=== PATIENT | male | born 2000 | race Caucasian/White ===

== ENCOUNTER 2019-12-15 12:37 | Emergency (ER) | payer BC, SELFPAY ==
[2019-12-15 12:51] VITALS: BP 153/63; PULSE 86; RESP 19; TEMP 27.7; O2SAT 99
--- NOTE | 2019-12-15 13:16 | ED.GENADULT ---
HPI - General Adult General Chief complaint: Upper Respiratory Infection Stated complaint: sore throat Time Seen by Provider: 12/15/19 12:45 Source: patient and family Mode of arrival: ambulatory Limitations: no limitations History of Present Illness HPI narrative: Patient is a 19-year-old male who presents to emergency department for evaluation of upper respiratory symptoms for the last few days noting sore throat congestion rhinorrhea nonproductive cough subjective fever. Patient denies any chest pain dyspnea weakness patient notes that he was just an spring break in [place] and then in [place] but is unsure as to any exact potential exposures to Covid. On arrival to emergency department patient in the room in no distress. Related Data Home Medications Medication Instructions Recorded Confirmed sertraline [Zoloft] 100 mg PO DAILY 12/15/19 Allergies Allergy/AdvReac Type Severity Reaction Status Date / Time No Known Allergies Allergy Verified 12/15/19 12:58 Review of Systems Review of Systems: All systems reviewed & are unremarkable except as noted in HPI and below PMFSH Social History Social History (Updated 12/15/19 @ 13:21 by Marshall Stanford PA-C) Smoking status: Current every day smoker Exam Narrative: Exam Narrative: GENERAL: Well-appearing, well-nourished, and in no acute distress. HEAD: Normocephalic, atraumatic. EYES: PERRLA and EOMI. ENT: Nares clear, no rhinorrhea or epistaxis. Mucous membranes moist. Oropharynx with tonsillar hypertrophy exudate and without other lesions. Bilateral TMs pearly morse nonbulging. Uvula midline no trismus or drooling NECK: Supple. Anterior adenopathy CHEST: Clear to auscultation. No respiratory distress. No wheezes rales or rhonchi HEART: Regular rate and rhythm. No murmur heard. EXTREMITIES: Normal range of motion. No edema. SKIN: Warm, dry, no rash. NEURO: No focal deficits. Alert and oriented x3. Cranial nerves II through XII grossly intact PSYCH: Normal mood and affect. Course Course Emergency Course: Patient in the room at this time in no distress afebrile nontoxic-appearing normal vital signs felt appropriate for outpatient reevaluation patient was advised that the influenza and strep are negative and that he could potentially be sick with covid 19. Patient was advised to follow with his primary care in the [facility] for further consideration and instructions on quarantining and testing if warranted. Patient provided with reasons to return. Patient afebrile nontoxic-appearing without emesis is noted Vital Signs Vital signs: Vital Signs Temperature 81.8 F L 12/15/19 12:51 Pulse Rate 86 12/15/19 12:51 Respiratory Rate 19 12/15/19 12:51 Blood Pressure 153/63 H 12/15/19 12:51 Pulse Oximetry 99 12/15/19 12:51 Temperature 81.8 F L 12/15/19 12:51 Pulse Rate 86 12/15/19 12:51 Respiratory Rate 19 12/15/19 12:51 Blood Pressure 153/63 H 12/15/19 12:51 Pulse Oximetry 99 12/15/19 12:51 Medical Decision Making MDM Narrative Medical decision making narrative: Patient in the room at this time aware of case findings treatment plan and diagnosis agreeing to follow-up as directed provided with reasons to return Vital Signs Vital Signs: Vital Signs Temperature 81.8 F L 12/15/19 12:51 Pulse Rate 86 12/15/19 12:51 Respiratory Rate 19 12/15/19 12:51 Blood Pressure 153/63 H 12/15/19 12:51 Pulse Oximetry 99 12/15/19 12:51 Temperature 81.8 F L 12/15/19 12:51 Pulse Rate 86 12/15/19 12:51 Respiratory Rate 19 12/15/19 12:51 Blood Pressure 153/63 H 12/15/19 12:51 Pulse Oximetry 99 12/15/19 12:51 Lab Data Labs: Influenza A Screen Negative Reference Range: Negative Influenza B Screen Negative Reference Range: Negative Discharge Plan Discharge Clinical Impression: Upper respiratory infection Patient Disposition: Home, Self-Car
[2019-12-15 13:18] VITALS: TEMP 37
== END 2019-12-15 13:57 | disposition home or self-care (01) ==
PROVIDERS: Emergency Provider Emergency Medicine; PCP Family Medicine Sports Medicine
DX: J06.9 Acute upper respiratory infection, unspecified (principal); Z20.828 Contact with and (suspected) exposure to other viral communicable diseases; F17.200 Nicotine dependence, unspecified, uncomplicated
CPT/HCPCS: 87081; 87804; 87880; 99283

== ENCOUNTER 2019-12-17 10:16 | Emergency (ER) | payer BC, SELFPAY ==
--- NOTE | ~2019-12-17 | XR_ITS ---
XR chest 1V portable DATE: 12/17/2019 11:18 INDICATION: Shortness of breath. Recent travel. TECHNIQUE: Portable upright AP views on 12/17/2019 at 1114 1115 hours COMPARISON: None FINDINGS: Normal heart size. No hilar or mediastinal enlargement. No pulmonary infiltrate or consolid ation, pleural effusion or pulmonary vascular congestion or pneumothorax is detected. IMPRESSION: No active cardiopulmonary disease Reviewed, dictated and finalized at location A.
[2019-12-17 10:20] VITALS: BP 133/67; PULSE 123; RESP 16; TEMP 37.2; O2SAT 97
[2019-12-17 11:00] VITALS: BP 116/80; PULSE 97; RESP 20; O2SAT 100
--- NOTE | 2019-12-17 11:01 | ED.URI ---
HPI - URI/Sore Throat General Chief Complaint: Upper Respiratory Infection Stated Complaint: fever, cold sx's Time Seen by Provider: 12/17/19 10:23 Source: patient Mode of arrival: ambulatory Limitations: no limitations History of Present Illness HPI Narrative: This is a 19 year old male that presents to the ER for sore throat x 4 days. Also reports subjective fever and some nausea and vomiting. Reports he feels like he is short of breath, but is not sure if it is just anxiety. Reports he recently traveled from [place], [place]. Reports his he was there for 10 days. Reports his symptoms started the day before he returned. Denies cough, chest pain, abdominal pain, or dysuria. Related Data Home Medications Medication Instructions Recorded Confirmed sertraline [Zoloft] 100 mg PO DAILY 12/15/19 Allergies Allergy/AdvReac Type Severity Reaction Status Date / Time No Known Allergies Allergy Verified 12/17/19 10:38 Review of Systems Review of Systems: Narrative: CONSTITUTIONAL: Reports fever, chills ENT: Reports sore throat. Denies rhinorrhea, congestion, or otalgia. CARDIOVASCULAR: Denies chest pain RESPIRATORY: Reports dyspnea. Denies cough GASTROINTESTINAL: Reports nausea and vomiting. Denies abdominal pain,or diarrhea. GENITOURINARY: Denies dysuria or hematuria. SKIN: Denies rash All systems reviewed & are unremarkable except as noted in HPI and below PMFSH Social History Social History (Updated 12/17/19 @ 11:13 by Dalila Hernandez PA-C) Smoking status: Current every day smoker Substance use type: marijuana Exam Narrative: Exam Narrative: GENERAL: Well-appearing, well-nourished, and in no acute distress. HEAD: Normocephalic, atraumatic. EYES: EOMI. ENT: Nares with rhinorrhea, no epistaxis. Mucous membranes moist. Oropharynx with tonsillar hypertrophy and exudate, no other lesions. Uvula midline, no trismus. Bilateral TMs pearly morse non-bulging NECK: Supple. Tender cervical adenopathy CHEST: Clear to auscultation. No respiratory distress. No wheezes rales or rhonchi HEART: Regular rate and rhythm. No murmur heard. Normal peripheral pulses. ABDOMEN: Soft, nontender, nondistended, normal active bowel sounds. EXTREMITIES: Normal range of motion. No edema. SKIN: Warm, dry, no rash. NEURO: No focal deficits. Alert and oriented x3. PSYCH: Normal mood and affect Course Vital Signs Vital signs: Vital Signs Temperature 98.9 F 12/17/19 10:20 Pulse Rate 123 H 12/17/19 10:20 Respiratory Rate 16 12/17/19 10:20 Blood Pressure 133/67 12/17/19 10:20 Pulse Oximetry 97 12/17/19 10:20 Temperature 100.3 F H 12/17/19 11:30 Pulse Rate 100 12/17/19 12:00 Respiratory Rate 22 H 12/17/19 12:00 Blood Pressure 122/62 12/17/19 12:00 Pulse Oximetry 97 12/17/19 12:00 MDM - URI/Sore Throat MDM Narrative Medical decision making narrative: Patient presents to the emergency department for sore throat and fever x4 days. Patient afebrile while in the ED. Mildly tachycardic upon arrival, this improved after IV fluids. CBC with leukocytosis to 15. Lymphocytosis noted. Metabolic panel shows transaminitis. CRP is mildly elevated. Strep screen is negative. [place] screen is positive. Chest x-ray is without acute changes. Patient and family were updated on case findings. They were instructed on care of mononucleosis. He is to follow-up with primary care doctor. He was given warnings to return to the ER Lab Data Attestation: I reviewed the patient's lab results. Result diagrams: 12/17/19 11:07 12/17/19 11:07 Labs: Lab Results 12/17/19 12/17/19 12/17/19 Range/Units 11:07 11:07 11:07 WBC 15.3 H (4.5-10.0) K/mm3 RBC 4.90 (4.6-6.20) M/mm3 Hgb 14.8 (14.0-18.0) g/dL Hct 44.2 (42.0-52.0) % MCV 90.2 (80-100) fl MCH 30.2 (26-34) pg MCHC 33.5 (32-36) g/dl RDW 12.6 (11.5-14.5) % Plt Count 156 (150-375) k/mm3 MPV 8.9
[2019-12-17 11:17] LABS: Basophils Absolute Auto 0.2 K/mm3 (0.0-0.1); Basophils Percent Auto 1.1 % (0.2-1.2); Hematocrit 44.2 % (42.0-52.0); Hemoglobin 14.8 g/dL (14.0-18.0); Immature Granulocyte Absolute 0.05 K/mm3 (0.00-0.031); Immature Granulocyte Percent A 0.3 % (0-0.5); Lymphocytes Absolute Auto 7.89 K/mm3 (0.9-3.2); Lymphocytes Percent Auto 51.6 % (18.3-44.2); Mean Corpuscular HGB Conc 33.5 g/dl (32-36); Mean Corpuscular Hemoglobin 30.2 pg (26-34); Mean Corpuscular Volume 90.2 fl (80-100); Mean Platelet Volume 8.9 fl (7.4-10.4); Monocytes Absolute Auto 1.5 K/mm3 (0.1-0.6); Monocytes Percent Auto 9.6 % (2.6-8.5); Neutrophils Absolute Auto 5.7 K/mm3 (1.3-6.7); Neutrophils Percent Auto 37.4 % (45.5-73.1); Platelet Count Result 156 k/mm3 (150-375); Red Cell Distribution Width 12.6 % (11.5-14.5); White Blood Count 15.3 K/mm3 (4.5-10.0)
[2019-12-17 11:30] VITALS: BP 120/63; PULSE 110; RESP 22; TEMP 37.9; O2SAT 100
[2019-12-17] MEDS: ONDANSETRON INJ 4 MG/2 ML VIAL IV PUSH (11:35)
[2019-12-17 11:36] LABS: Alanine Aminotransferase 149 U/L (4-50); Alkaline Phosphatase 237 U/L (38-126); Aspartate Amino Transferase 152 U/L (17-59); Bilirubin,Total 1.2 mg/dL (0.2-1.3); Blood Urea Nitrogen 6 mg/dL (9-20); CRP 2.9 mg/dL (<1.0); Calcium 8.9 mg/dL (8.4-10.2); Carbon Dioxide 27 mmol/L (22-30); Chloride 98 mmol/L (98-107); Estimated CRCL calculation 148 ml/min; Estimated Glomerular Filt Rate > 60; Glucose 112 mg/dL (75-110); Lactate Dehydrogenase 1204 U/L (313-618); Potassium 4.3 mmol/L (3.4-5.0); Sodium 134 mmol/L (137-145)
[2019-12-17] MEDS: SODIUM CHLORIDE 0.9% IV 1,000 ML 999 ML IV CONT (11:40)
[2019-12-17 12:00] VITALS: BP 122/62; PULSE 100; RESP 22; O2SAT 97
[2019-12-17 12:08] LABS: Monoscreen Positive (Negative); Negative Monotest Control Negative (Negative); Positive Monotest Control Positive (Positive)
[2019-12-17 13:30] VITALS: BP 116/64; PULSE 78; RESP 18; O2SAT 97
== END 2019-12-17 13:33 | disposition home or self-care (01) ==
PROVIDERS: Physician Assistant; Emergency Provider Emergency Medicine; PCP Family Medicine Sports Medicine
DX: B27.90 Infectious mononucleosis, unspecified without complication (principal); F17.200 Nicotine dependence, unspecified, uncomplicated
CPT/HCPCS: 36415; 71045; 80053; 83615; 85025; 86140; 86308; 87081; 87880; 96361; 96365; 96375; 99284; J0131; J2405; J7030

== ENCOUNTER 2021-04-03 16:04 | Emergency (ER) | payer BC, SELFPAY ==
--- NOTE | ~2021-04-03 | XR_ITS ---
EXAMINATION: XR chest 2V DATE: 04/03/2021 16:36 INDICATION: Generalized chest pain TECHNIQUE: PA and lateral views of the chest are obtained. COMPARISON: 12/17/2019 FINDINGS: The lungs are free of acute opacities. There is no pleural effusion or pneumothorax. The ca rdiomediastinal silhouette is normal. The visualized bones and soft tissues are unremarkable. IMPRESSION: 1. No acute cardiopulmonary abnormality. Reviewed, dictated and finalized at location B.
[2021-04-03 16:07] VITALS: BP 133/82; PULSE 89; RESP 18; TEMP 36.6; O2SAT 99
--- NOTE | 2021-04-03 16:12 | ECG_ITS ---
Measurements Intervals [place] Rate: 81 P: 72 MS: 142 QRS: 56 QRSD: 98 T: 63 QT: 350 QTc: 407 Interpretive Statements SINUS RHYTHM ST ELEVATION IN ANT/INF LEADS, PROBABLY EARLY REPOLARIZATION BASELINE ARTIFACT- I, II, III, AVR, AVL, AVF, V3-V6 BORDERLINE ECG Electronically Signed On 04-03-2021 16:23:16 CDT by Alex Solitario D.O.
[2021-04-03 16:27] LABS: Basophils Percent Auto 0.2 % (0.2-1.2); Eosinophils Absolute Auto 0.4 K/mm3 (0-0.3); Eosinophils Percent Auto 7.7 % (0-4.4); Hematocrit 41.7 % (42.0-52.0); Hemoglobin 14.3 g/dL (14.0-18.0); Lymphocytes Absolute Auto 1.17 K/mm3 (0.9-3.2); Lymphocytes Percent Auto 24.3 % (18.3-44.2); Mean Corpuscular HGB Conc 34.3 g/dl (32-36); Mean Corpuscular Hemoglobin 29.7 pg (26-34); Mean Corpuscular Volume 86.5 fl (80-100); Mean Platelet Volume 8.4 fl (7.4-10.4); Monocytes Absolute Auto 0.3 K/mm3 (0.1-0.6); Monocytes Percent Auto 6.6 % (2.6-8.5); Neutrophils Percent Auto 61.2 % (45.5-73.1); Platelet Count Result 270 k/mm3 (150-375); Red Blood Count 4.82 M/mm3 (4.6-6.20); Red Cell Distribution Width 11.7 % (11.5-14.5); White Blood Count 4.8 K/mm3 (4.5-10.0)
[2021-04-03 16:36] LABS: INR 0.9; Prothrombin Time 12.3 Seconds (11.1-14.7)
[2021-04-03 16:37] LABS: Partial Thromboplastin Time 26.6 SECONDS (22.3-36.8)
[2021-04-03 16:38] LABS: Anion Gap 12 mmol/L (8-16); Blood Urea Nitrogen 7 mg/dL (9-20); Calcium 9.8 mg/dL (8.4-10.2); Carbon Dioxide 27 mmol/L (22-30); Chloride 104 mmol/L (98-107); Estimated CRCL calculation 127 ml/min; Estimated Glomerular Filt Rate > 60; Glucose 98 mg/dL (65-110); Sodium 143 mmol/L (137-145)
--- NOTE | 2021-04-03 16:39 | ED.CHESTPAIN ---
HPI - Chest Pain General Chief Complaint: Chest Pain Stated Complaint: cp, sob after covid Time Seen by Provider: 04/03/21 16:10 Source: patient Mode of arrival: ambulatory Limitations: no limitations History of Present Illness HPI narrative: This is a 20 year old male that presents to the ER for ongoing chest pain and shortness of breath since his Covid diagnosis 2 weeks ago. Reports he constantly feels a pressure on his chest. Reports this worsens with exertion. Also reports feeling short of breath that is worsened with exertion. Reports a ongoing mild cough as well. Denies fever or lower extremity edema. Related Data Home Medications Medication Instructions Recorded Confirmed sertraline [Zoloft] 100 mg PO DAILY 12/15/19 Allergies Allergy/AdvReac Type Severity Reaction Status Date / Time No Known Allergies Allergy Verified 04/03/21 16:18 Review of Systems Review of Systems: Narrative: CONSTITUTIONAL: Denies fever CARDIOVASCULAR: Reports chest pain. Denies edema. RESPIRATORY: Reports cough and dyspnea. All systems reviewed & are unremarkable except as noted in HPI and below PMFSH Past Medical History Medical History (Updated 04/03/21 @ 18:21 by Dalila Hernandez PA-C) History of anxiety Social History Social History (Updated 12/17/19 @ 11:13 by Dalila Hernandez PA-C) Smoking status: Current every day smoker Substance use type: marijuana Exam Narrative: Exam Narrative: GENERAL: Well-appearing, well-nourished, and in no acute distress. HEAD: Normocephalic, atraumatic. EYES: EOMI. ENT: Mucous membranes moist. Oropharynx without tonsillar hypertrophy exudate or other lesions. CHEST: Clear to auscultation. No respiratory distress. No wheezes rales or rhonchi HEART: Regular rate and rhythm. No murmur heard. Normal peripheral pulses. EXTREMITIES: Normal range of motion. No edema. SKIN: Warm, dry, no rash. NEURO: No focal deficits. Alert and oriented x3. PSYCH: Normal mood and affect Course Vital Signs Vital signs: Vital Signs Temperature 97.9 F 04/03/21 16:07 Pulse Rate 89 04/03/21 16:07 Respiratory Rate 18 04/03/21 16:07 Blood Pressure 133/82 04/03/21 16:07 Pulse Oximetry 99 04/03/21 16:07 Temperature 97.9 F 04/03/21 16:07 Pulse Rate 89 04/03/21 16:07 Respiratory Rate 18 04/03/21 16:07 Blood Pressure 133/82 04/03/21 16:07 Pulse Oximetry 99 04/03/21 16:07 MDM - Chest Pain MDM Narrative Medical decision making narrative: Patient presents the emergency department for ongoing chest pain and feelings of shortness of breath since his Covid diagnosis earlier this month. He is afebrile and nontoxic-appearing. Vitals are stable. Oxygen saturation has remained normal on room air. CBC and metabolic panel without concerning findings. EKG shows nonspecific ST changes, likely due to early repolarization. D-dimer is not elevated. Baseline troponin is negative. Chest x-ray without acute cardiopulmonary abnormality. Heart score is a 1. Patient reports relief in pain with Toradol. He is stable and felt appropriate for further outpatient evaluation. Instructed to follow-up with his primary care doctor. He was given warnings to return to the ER Lab Data Attestation: I reviewed the patient's lab results. Result diagrams: 04/03/21 16:17 04/03/21 16:17 Labs: Lab Results 04/03/21 04/03/21 04/03/21 Range/Units 16:15 16:17 16:17 WBC 4.8 (4.5-10.0) K/mm3 RBC 4.82 (4.6-6.20) M/mm3 Hgb 14.3 (14.0-18.0) g/dL Hct 41.7 L (42.0-52.0) % MCV 86.5 (80-100) fl MCH 29.7 (26-34) pg MCHC 34.3 (32-36) g/dl RDW 11.7 (11.5-14.5) % Plt Count 270 D (150-375) k/mm3 MPV 8.4 (7.4-10.4) fl Immature Gran % (Auto) 0.0 (0-0.5) % Neut % (Auto) 61.2 (45.5-73.1) % Lymph % (Auto) 24.3 (18.3-44.2) % [place] % (Auto) 6.6 (2.6-8.5) % Eos % (Auto) 7.7 H (0-4.4) % Baso % (Auto) 0.2 (
[2021-04-03 16:49] LABS: Troponin I < 0.012 ng/mL (0.000-0.034)
[2021-04-03] MEDS: KETOROLAC 30 MG/ML VIAL (*BKC) IV PUSH (16:53)
[2021-04-03 17:25] LABS: D Dimer 0.27 ug/mL (<0.48)
[2021-04-03 18:44] VITALS: BP 119/56; PULSE 70; RESP 14; O2SAT 99
[2021-04-03 18:56] VITALS: BP 119/56; PULSE 76; RESP 18; O2SAT 100
== END 2021-04-03 18:57 | disposition home or self-care (01) ==
PROVIDERS: Physician Assistant; Emergency Provider Emergency Medicine; PCP Family Medicine Sports Medicine
DX: R07.9 Chest pain, unspecified (principal); F41.9 Anxiety disorder, unspecified; Z86.16 Personal history of COVID-19; F17.200 Nicotine dependence, unspecified, uncomplicated
CPT/HCPCS: 36415; 71046; 80048; 84484; 85025; 85380; 85610; 85730; 93005; 99284; J1885

== ENCOUNTER 2022-12-13 18:38 | Emergency (ER) | payer BC, SELFPAY ==
--- NOTE | 2022-12-13 18:42 | PC.NURSE ---
after checking in pt decides he doesn't want to wait. pt states he is going to be seen somewhere else
== END 2022-12-13 18:50 | disposition left against medical advice (07) ==
PROVIDERS: PCP Family Medicine Sports Medicine
DX: Z53.21 Procedure and treatment not carried out due to patient leaving prior to being seen by health care provider (principal)
CPT/HCPCS: 99199